=== PATIENT | male | born 1990 ===

== ENCOUNTER 2019-11-30 11:09 | Emergency (ER) | payer MEDICAID ==
[~2019-11-30] VITALS: Ht 180.3 cm; Wt 74.8 kg
[2019-11-30] MEDS ORDERED: INSU100I26 SQ (11:30)
[2019-11-30] MEDS ORDERED: LORAZEPAM 2 MG/1 ML VIAL ONE ×2 (11:44→17:54)
[2019-11-30] MEDS ORDERED: IV NORMAL SALINE 1000 ML BAG IV ONE (11:45)
[2019-11-30] MEDS ORDERED: LORAZEPAM 2 MG/1 ML VIAL IV ONE ×2 (11:45→17:45)
--- NOTE | 2019-11-30 11:59 | NUR ---
PT IS IN BED 1B. DR BELTRAN EVALUATED THE PT.
[2019-11-30] MEDS ORDERED: DEXTROSE 50% 50 ML DISP.SYRIN ONE ×4 (12:27→19:42)
[2019-11-30 12:28] LABS: BASOPHILS % (AUTO) 0.4 % (0.0-2.0); EOSINOPHILS # (AUTO) 0.1 K/uL (0.0-0.7); HEMATOCRIT 37.6 % (36.7-47.1); HEMOGLOBIN 12.8 g/dL (12.5-16.3); LYMPHOCYTES # (AUTO) 0.9 K/uL (20.0-40.0); LYMPHOCYTES % (AUTO) 11.5 % (20.5-51.5); MEAN CORPUSCULAR HEMOGLOBIN 30.6 uug (23.8-33.4); MEAN CORPUSCULAR HGB CONC 34 g/dL (32.5-36.3); MEAN CORPUSCULAR VOLUME 90.1 fL (73.0-96.2); MONOCYTES # (AUTO) 0.7 K/uL (2.0-10.0); MONOCYTES % (AUTO) 8.3 % (0.0-11.0); NEUTROPHILS # (AUTO) 6.4 K/uL (1.8-8.9); NEUTROPHILS % (AUTO) 78.8 % (38.5-71.5); PLATELET COUNT (AUTO) 168 K/uL (152-348); RED BLOOD CELL COUNT(AUTO) 4.17 MIL/uL (4.06-5.63); WHITE BLOOD COUNT (AUTO) 8.2 K/uL (3.6-10.2)
[2019-11-30] MEDS ORDERED: DEXTROSE 50% 50 ML DISP.SYRIN IV ONE ×4 (12:30→19:45)
[2019-11-30 12:48] LABS: BILIRUBIN,DIRECT 0.2 mg/dL (0.0-0.2); BILIRUBIN,TOTAL 0.6 mg/dL (0.2-1.0); CREATININE 0.9 mg/dL (0.6-1.3); POTASSIUM 3.8 mmol/L (3.5-5.1); TOTAL PROTEIN, SERUM 6.1 g/dL (6.4-8.2)
--- NOTE | 2019-11-30 15:45 | NUR ---
[facility] FROM [facility] CALLED WITH TRANSFER INFORMATION. PT IS GOING TO BE TRANSFERED TO [facility] VIA [facility]. ADMITTING MD IS DR GUZMAN. PHONE NUMBER FOR REPORT IS [phone]. [facility] WAS CALLED FOR PT TRANSPORT, BUT THEY REQUESTED THAT [employer] FAXED AUTHORIZATION PAPER ( #[phone] ) DIRECTLY TO THEM ( FAX # [phone]). TONY ROMEO WAS NOTIFIED ABOUT [facility] REQUEST.
--- NOTE | 2019-11-30 16:45 | NUR ---
[facility] WAS CALLED FOR ALS TRANSFER. LINO IS [id number].
--- NOTE | 2019-11-30 18:11 | NUR ---
PT IS RESTING IN BED COMFORTABLY. NO S/S OF ACUTE DISTRESS AT THIS TIME.
--- NOTE | 2019-11-30 19:01 | NUR ---
REPORT WAS GIVENTO MACHINE PROGRAMMER RN.
--- NOTE | 2019-11-30 19:23 | NUR ---
Dextrose 50% given IV per MD orders
--- NOTE | 2019-11-30 19:44 | NUR ---
MD order for dextrose 50% in 50 mL, given at this time
--- NOTE | 2019-11-30 19:57 | NUR ---
[facility] caled to give report at this time, awaiting nurse to receive report
--- NOTE | 2019-11-30 20:01 | NUR ---
Dione GAMBOA received report at this time
--- NOTE | 2019-11-30 20:21 | NUR ---
Blood sugar rechecked at this time 164
--- NOTE | 2019-11-30 21:11 | NUR ---
Patient noted sitting up in bed eating two sandwiches, no distress noted
--- NOTE | 2019-11-30 22:19 | NUR ---
Patient Tranfers to outside Facility to [facility] Physician:Crystal ULLOA Location:[facility] [place]
== END 2019-11-30 22:28 | disposition short-term general hospital (02) ==
LOC: ER 11:09
DX: F11.23 Opioid dependence with withdrawal (principal); F15.93 Other stimulant use, unspecified with withdrawal; E11.649 Type 2 diabetes mellitus with hypoglycemia without coma; Z79.4 Long term (current) use of insulin; Z20.828 Contact with and (suspected) exposure to other viral communicable diseases; Z86.19 Personal history of other infectious and parasitic diseases
CPT/HCPCS: 36415; 80048; 80076; 82962 ×11; 83690; 85025; 87426; 96361; 96374; 96375; 96376; 99291; 99292; J2060 ×2; J3490 ×4; A4663; J7030